=== PATIENT | female | born 1980 | race Caucasian/White ===

== ENCOUNTER → 2016-03-10 | Outpatient (CLI) | payer BC ==
[~2016-03-10] MED LIST: ASPI81TA28 PO; CMD5 PO; ESCI1TAB10 PO; FOLI1TAB7 PO; GLC/500 PO; LEVO50TA6 PO; LVNIS40 SQ; PRENTAB26 PO; WARF5TAB7 PO
== END | disposition home or self-care (01) ==
LOC: C.LABMFLN 09:07
PROVIDERS: ATTEND Family Medicine
DX: R35.0 Frequency of micturition (principal)

== ENCOUNTER → 2016-03-20 | Outpatient (CLI) | payer BC ==
[2016-03-20 16:08] LABS: THYROID STIMULATING HORMONE 1.24 uIu/ml (0.300-4.500)
== END | disposition home or self-care (01) ==
LOC: C.LAB1850 14:41
PROVIDERS: ATTEND Obstetrics & Gynecology
DX: O99.282 Endocrine, nutritional and metabolic diseases complicating pregnancy, second trimester (principal); Z3A.00 Weeks of gestation of pregnancy not specified

== ENCOUNTER → 2016-04-03 | Outpatient (CLI) | payer BC | END | disposition home or self-care (01) | LOC: C.LABSPEC 16:48 | PROVIDERS: ATTEND Obstetrics & Gynecology | DX: O24.410 Gestational diabetes mellitus in pregnancy, diet controlled (principal) ==

== ENCOUNTER 2016-04-21 13:03 | Inpatient (IN) | payer BC ==
[~2016-04-21] VITALS: Ht 162.6 cm; Wt 70.8 kg
[~2016-04-21 13:03] MED LIST changes: -LVNIS40 SQ
[2016-04-21] MEDS ORDERED: LACTATED RINGER'S 1000ML 1,000 ML IV PRN (13:25)
[2016-04-21] MEDS ORDERED: LACTATED RINGER'S 1000ML 1,000 ML IV SCH (13:25)
[2016-04-21 14:09] LABS: HEMATOCRIT 35.6 % (37-47); MEAN CORPUSCULAR HEMOGLOBIN 30.2 pg (25-34); MEAN CORPUSCULAR HGB CONC 35.1 g/dl (32-36); MEAN PLATELET VOLUME 11.7 fL (7.4-10.4); PLATELET COUNT 126 K/uL (130-400); RED BLOOD COUNT 4.14 M/uL (4.2-5.4); WHITE BLOOD COUNT 9.82 K/uL (4.8-10.8)
[2016-04-21 14:17] LABS: PROTHROMBIN TIME (PATIENT) 10.3 SECONDS (9.0-12.0)
[2016-04-21] MEDS ORDERED: BUPIVACAINE 0.25% 30 ML VIAL ONE (14:35)
[2016-04-21] MEDS ORDERED: EpHEDrine SULFATE INJ 50 MG/ML AMP ONE (14:36)
[2016-04-21] MEDS ORDERED: FENTANYL CITRATE INJ 50 MCG/1 ML 2 ML VIAL ONE (14:37)
[2016-04-21] MEDS ORDERED: FENTANYL 2MCG/ML ROPIV 1.25MG/ML 100ML BAG EPI ONE (14:38)
[2016-04-21 15:30] VITALS: Ht 162.6 cm; Wt 70.8 kg
[2016-04-21] MEDS ORDERED: NALOXONE HCL INJ 1 MG in SODIUM CHLORIDE 0.9% 1000ML 1,000 ML IV PRN (16:19)
[2016-04-21] MEDS ORDERED: LACTATED RINGER'S 1000ML 500 ML IV PRN ×2 (16:19→21:37)
[2016-04-21] MEDS ORDERED: EpHEDrine SULFATE INJ 50 MG/ML AMP IV PRN (16:30)
[2016-04-21] MEDS ORDERED: FENTANYL 2MCG/ML ROPIV 1.25MG/ML 100ML BAG EPI PRN (16:30)
[2016-04-21] MEDS ORDERED: ONDANSETRON INJ 2 MG/ML 2 ML VIAL IV PRN (16:30)
[2016-04-21] MEDS ORDERED: DiphenhydrAMINE HCL 50 MG/ML VIAL IV PRN (16:30)
[2016-04-21] MEDS ORDERED: NALOXONE HCL INJ 0.4 MG/1 ML VIAL/CARP IV PRN (16:30)
[2016-04-21] MEDS ORDERED: NALBUPHINE HCL INJ 10 MG/ML AMP IV PRN (16:30)
[2016-04-21] MEDS ORDERED: OXYTOCIN 30 UNITS/500ML NSS IV PRN (21:45)
[2016-04-22] MEDS ORDERED: ACETAMINOPHEN 325 MG TAB PO PRN (01:15)
[2016-04-22] MEDS ORDERED: OXYCODONE/ACETAMINOPHEN 5-325 TAB PO PRN (01:15)
[2016-04-22] MEDS ORDERED: SUPERCREAM 0.870 % 15GM JAR EXT PRN (01:15)
[2016-04-22] MEDS ORDERED: HYDROCORTISONE ACETATE 25 MG SUPP PR PRN (01:15)
[2016-04-22] MEDS ORDERED: IBUPROFEN 600 MG TAB PO PRN (01:15)
[2016-04-22] MEDS ORDERED: OXYTOCIN 30 UNITS/500ML NSS IV PRN (01:15)
[2016-04-22] MEDS ORDERED: LANOLIN OINT EXT PRN ×2 (01:15)
[2016-04-22] MEDS ORDERED: BENZOCAINE 20% AER SPR 82.5 GM CAN EXT PRN (01:15)
[2016-04-22] MEDS: ACETAMINOPHEN/CODEINE 300/30MG TAB PO PRN ×4 (03:25→19:44)
[2016-04-22 03:45] VITALS: BP 122/78; PULSE 116; TEMP 36.5
--- NOTE | 2016-04-22 06:13 | DELIVERY SUMMARY ---
DATE OF OPERATION: 04/22/2016 Carla delivered vaginally on the advisor advocate angel co founder of 04/22/2016. She had a prior and wished a . She presented in labor initially at 3 cm and then progressed to 4. Membranes had been already ruptured and then she progressed to 5 to 6. Eventually, I suggested Pitocin, as the patient's contractions pattern spaced and she agreed. She then progressed rapidly to fully dilated, pushed for approximately 40 minutes and delivered a baby in occiput anterior position. Mouth and then nares were suctioned. There was no nuchal cord. Baby was delivered with gentle traction, a live, vigorous female infant. No excessive force was used. After delayed cord clamping, cord blood was obtained. Placenta was removed. Uterus was examined and scar was found to be intact. A second-degree tear repaired with 3-0 Vicryl. Sponge and instrument counts correct. Estimated blood loss 150 mL and rectal exam negative for sutures or defects. I attest to the content of the Intraoperative Record and any orders documented therein. Any exceptio ns are noted below.
[2016-04-22 07:30] VITALS: BP 118/81; PULSE 98; TEMP 36.7; O2SAT 97
[2016-04-22] MEDS: DOCUSATE SODIUM 100 MG CAP PO SCH ×2 (07:54→19:43)
[2016-04-22] MEDS: PRENATAL VITAMIN TAB PO SCH (07:54)
[2016-04-22] MEDS: LEVOTHYROXINE 50 MCG TAB PO SCH (08:15)
--- NOTE | 2016-04-22 08:32 | Progress Note ---
Subjective Apr 22, 2016. Subjective conversation w/ patient, physical exam, chart review Ambulation: ambulating normally Voiding: no voiding problems Diet Tolerance: Regular Diet Lochia: Moderate Feeding Type: Breast Feeding Objective Vital Signs Date Time Temp Pulse Resp B/P Pulse Ox O2 Delivery O2 Flow Rate FiO2 04/22/16 03:45 36.5 116 20 122/78 04/22/16 03:45 Room Air Physical Exam General Appearance: WELL-APPEARING Abdomen: non tender Fundus: Firm Extremities: no calf tenderness Laboratory Results Last 24 Hours Test 04/21/16 13:26 04/21/16 13:55 Bedside Glucose 85 mg/dl White Blood Count 9.82 K/uL Red Blood Count 4.14 M/uL Hemoglobin 12.5 g/dL Hematocrit 35.6 % Mean Corpuscular Volume 86.0 fL Mean Corpuscular Hemoglobin 30.2 pg Mean Corpuscular Hemoglobin Concent 35.1 g/dl RDW Standard Deviation 43.5 fL RDW Coefficient of Variation 13.9 % Platelet Count 126 K/uL Mean Platelet Volume 11.7 fL Prothrombin Time 10.3 SECONDS Prothromb Time International Ratio 1.0 Activated Partial Thromboplast Time 26.5 SECONDS Partial Thromboplastin Ratio 1.0 Assessment and Plan Problem List Medical Problems: (1) Headache Status: Acute Post- Day#: 1 Continue Routine Care: Start Lovenox 40mg daily tomorrow.
[2016-04-22 12:05] VITALS: BP 120/73; PULSE 105; TEMP 36.5; O2SAT 97
[2016-04-22 15:35] VITALS: BP 132/87; PULSE 109; TEMP 36.6
[2016-04-22 19:40] VITALS: BP 115/73; PULSE 111; TEMP 36.6
[2016-04-22 23:25] VITALS: BP 115/78; PULSE 101; TEMP 36.7
[2016-04-23] MEDS: ACETAMINOPHEN/CODEINE 300/30MG TAB PO PRN (00:16)
[2016-04-23 06:42] LABS: HEMATOCRIT 31.2 % (37-47)
[2016-04-23 07:14] LABS: CREATININE 0.55 mg/dl (0.60-1.20)
--- NOTE | 2016-04-23 07:41 | Progress Note ---
Subjective Apr 23, 2016. Subjective conversation w/ patient, physical exam Ambulation: ambulating normally Voiding: no voiding problems Passing Gas: Yes Diet Tolerance: Regular Diet Lochia: Small Feeding Type: Breast Feeding Review of Systems Constitutional: No chills, No fever Respiratory: No cough, No shortness of breath Cardiac: No chest pain, No palpitations Objective Vital Signs Date Time Temp Pulse Resp B/P Pulse Ox O2 Delivery O2 Flow Rate FiO2 04/22/16 23:25 Room Air 04/22/16 23:25 36.7 101 18 115/78 Room Air 04/22/16 19:40 36.6 111 18 115/73 Room Air 04/22/16 15:35 Room Air 04/22/16 15:35 36.6 109 18 132/87 Room Air 04/22/16 12:05 36.5 105 18 120/73 97 Room Air Physical Exam General Appearance: WELL-APPEARING, NO APPARENT DISTRESS Respiratory/Chest: lungs clear, no respiratory distress Cardiovascular: regular rate, rhythm, no murmur Fundus: Firm, Non-Tender, Relation to Umbilicus (2 cm below) Extremities: non-tender, no calf tenderness Laboratory Results Last 24 Hours Test 04/23/16 06:09 Hemoglobin 10.9 g/dL Hematocrit 31.2 % Creatinine 0.55 mg/dl Est Creatinine Clear Calc Drug Dose 135.1 ml/min Estimated GFR () 138.9 Estimated GFR (Non- 119.8 Assessment and Plan Problem List Medical Problems: (1) Headache Status: Acute Post- Day#: 1 Continue Routine Care: Resident Physician Supervision Note: I interviewed and examined the patient. Discussed with Dr. Sarmiento and agree with findings and plan as documented in the note. Any exceptions or clarifications are listed here: 6wk lovenox due to history of CVA, Rx provided, pt aware and knows how to use correctly. Documented By: April Robles s/p Day 1 - vitals reviewed and wnl - Blood: B-, GBS-, Rubella immune - Patient doing well clinically - Encourage breast feeding, encourage ambulation and monitor lochia - Patient counselled on discharge instructions - Patient will go home with lovenox SQ for 6 weeks - PATIENT TO BE DISCHARGED TODAY
[2016-04-23] MEDS ORDERED: LVNIS40 SQ (07:44)
--- NOTE | 2016-04-23 07:45 | Discharge Instructions ---
Discharge Instructions Date of Service Apr 23, 2016. Admission Reason for Admission: R/O Rupture Of Membranes Discharge Discharge Diagnosis / Problem: Spontaneous Vaginal Delivery Discharge Goals Goal(s): Routine recovery after delivery Medications Continue Dispensed Medications: supercream, dermaplast, tucks, lansinoh Activity Recommendations Activity Limitations: per Instructions/Follow-up section . Instructions / Follow-Up Instructions / Follow-Up ACTIVITY RECOMMENDATIONS: * Gradual return to full activity over the next 2-3 weeks. * No lifting - nothing heavier than baby over the next 2-3 weeks. * Do not engage in vigorous exercise, sexual activity or sports until cleared by your physician. * Do not drive or operate any motorized equipment until cleared by your physician. * You may shower/bathe daily. MEDICATIONS: For discomfort or pain, you may use Acetaminophen (Tylenol), Ibuprofen (Advil), or Naproxen (Aleve) following the package directions. For constipation you may use Colace following the package directions. BREAST CARE: If you are not breast feeding: * Wear a supportive bra 24 hours a day for one to two weeks. * Avoid stimulating your breasts and nipples as much as possible during the first few weeks after delivery. * When taking a shower, have the warm water hit your back, not breasts. * When your breasts feel full, apply ice packs. Usually three to four times a day helps ease the discomfort. * Take a mild pain medication (Tylenol / Motrin) when you are uncomfortable. If breast feeding: * Use breast milk to lubricate nipples. Lansinoh cream may be used for sore nipples. You do not need to remove cream prior to breast feeding. If using a different brand of cream, check the label for directions regarding removal of cream prior to nursing. * Wear a supportive bra. * If having problems with breasts or breast feeding, call a lead consultant or your health care provider. EPISIOTOMY CARE: After delivery, if you have an episiotomy (stitches), the following steps will ease discomfort and aid healing. * For the first 24 hours after delivery, place ice packs next to your episiotomy to help reduce swelling. * After the first 24 hour-period, sitz baths, either portable or in the tub, are suggested. A shower with a shower arm sprayed over the episiotomy may be comforting. * [place]elia care should be done after each voiding and bowel movement. Squirt warm water from a plastic bottle over the perineum (region of the body between the anus and urinary opening) and pat dry. * Use Dermoplast to ease discomfort. Shake container. [place] directly over the episiotomy. Place a Tucks on a clean sanitary pad next to your episiotomy. SPECIAL CARE INSTRUCTIONS: When you are discharged from the hospital, it is important for you to follow the instructions listed below: * During the first week at home, you should be able to care for yourself and your baby. In addition, the usual light household activities are encouraged. * Limit your activities to the way you feel. Do not try to clean the house or move furniture. Be sensible. * If you actively engage in sports and have done so up until the time of your delivery, you may resume these activities as soon as you feel able. This may take up to one month or even longer. Use good judgment. * Continue to take your vitamins for at least six weeks after the of your baby. * Your diet need not be limited unless you were on a special diet before your delivery. Breast-feeding mothers need around 2500 calories per day and at least 64-80 ounces of fluid per day (8 to 10 glasses). * You should eat foods from the four major food groups. Crash diets or fad diets are to be avoided. Eating lean meats, fresh fruits and vegetables, low-fat dairy products, high fiber foods and a regular exercise program, will help you get back to your pre- weight without putting your health at risk. * Constipation is sometimes a problem after delivery. Take a mild laxative as needed. If breast feeding, Milk of Magnesia is acceptable to use. You may use a suppository or Fleets enema if no episiotomy. * A daily shower or tub bath is suggested. Be sure to thoroughly and gently dry the perineum. * A bloody vaginal discharge will usually continue until around four weeks post . A small amount of bleeding may continue for as long as six weeks. Vaginal discharge changes from the bright red bleeding after delivery to pink then brownish and finally yellowish-pink before becoming white and disappearing. * Bleeding may increase with activity. Your first period may come in 4-8 weeks. If you are breast feeding, your period may be delayed even longer. * [place] (sex) can begin whenever both you and your partner feel comfortable and do not have any form of genital infection. It is recommended that you wait at least six weeks for internal and external healing to occur. If you have questions, please talk to your health care practitioner. A condom should be used to prevent infection and . * Foreplay, gentle intercourse and lubrication is very important the first several times to prevent pain. A water-based lubricant such as K-Y jelly or Astroglide may be used. * If you have RH negative blood and your baby is RH positive, you will receive RHOGAM by injection prior to discharge. The nurse will give you a card to keep with you that has the date and place that you received RHOGAM after delivery. * During your care, you had a Rubella screen done to check for the presence of rubella antibodies in your blood. If your test was negative, you will receive a Rubella vaccine prior to discharge. This vaccine may cause a fever, soreness at the injection site and flu-like symptoms. If these symptoms persist, notify your health care practitioner. is not advised for one month after a Rubella vaccine. * Verbalizes understanding of car seat law as reviewed with patient nursing. * Car Seat hand-out given and reviewed with patient by nursing. * Shaken baby information reviewed with patient by nursing. Call you doctor if: * Heavy bleeding (saturating several pads an hour) or passing clots the size of your fist. * A fever >101 degrees F (38.3 degrees C) on two occasions four hours apart and /or chills. * Unusual pain in the pelvic or vaginal areas. * "Baby Blues" lasting longer than two weeks. If you have any questions or concerns, call your health care practitioner at . FOLLOW UP VISIT: * Please call the office at to schedule a 6 week examination. It is important you keep this appointment. It is important for you to make arrangements for either yearly or twice yearly check-ups thereafter. Current Hospital Diet Patient's current hospital diet: Regular OB Diet Discharge Diet Recommended Diet: Regular Diet Pending Studies Studies pending at discharge: no Medical Emergencies . Who to Call and When: Medical Emergencies: If at any time you feel your situation is an emergency, please call 911 immediately. . Non-Emergent Contact Non-Emergency issues call your: Primary Care Provider, Leaf Sucker Operator . . "Provider Documentation" section prepared by Alhaji Sarmiento. VTE Core Measure Inpt VTE Proph given/why not?: Treatment not indicated
[2016-04-23] MEDS: LEVOTHYROXINE 50 MCG TAB PO SCH (07:55)
[2016-04-23 08:00] VITALS: BP 104/67; PULSE 77; PULSE 99; TEMP 36.7
[2016-04-23] MEDS ORDERED: ENOXAPARIN 40 MG/0.4 ML SYR SQ SCH (08:00)
[2016-04-23] MEDS: DOCUSATE SODIUM 100 MG CAP PO SCH (08:36)
[2016-04-23] MEDS: PRENATAL VITAMIN TAB PO SCH (08:36)
[2016-04-23 13:00] VITALS: BP_DIAS 67; PULSE 99; TEMP 36.7
[2016-04-23] MEDS ORDERED: BISACODYL 5 MG TABEC PO SCH (20:00)
[2016-04-24] MEDS ORDERED: BISACODYL 10 MG SUPP PR PRN (07:00)
== END 2016-04-23 13:35 | disposition home or self-care (01) | DRG 775 ==
LOC: C.LD 13:03 → C.OPB 13:03 → C.LD 13:28 → C.OBG 04-22 04:07 → EDSTATUS 04-25 07:30
PROVIDERS: ADMIT Obstetrics & Gynecology; ATTEND Obstetrics & Gynecology
PROC: 0KQM0ZZ Repair Perineum Muscle, Open Approach (ICD-10-PCS; principal; 2016-04-22)
PROC: 10E0XZZ Delivery of Products of Conception, External Approach (ICD-10-PCS; principal; 2016-04-22)
DX: O24.420 Gestational diabetes mellitus in childbirth, diet controlled (principal); O99.354 Diseases of the nervous system complicating childbirth; O34.219 Maternal care for unspecified type scar from previous cesarean delivery; O70.1 Second degree perineal laceration during delivery; G43.909 Migraine, unspecified, not intractable, without status migrainosus; O99.284 Endocrine, nutritional and metabolic diseases complicating childbirth; E07.9 Disorder of thyroid, unspecified; O75.89 Other specified complications of labor and delivery; Q24.9 Congenital malformation of heart, unspecified; Z86.718 Personal history of other venous thrombosis and embolism; Z86.73 Personal history of transient ischemic attack (TIA), and cerebral infarction without residual deficits; Z79.01 Long term (current) use of anticoagulants; Z79.899 Other long term (current) drug therapy; Z37.0 Single live birth; Z3A.39 39 weeks gestation of pregnancy

== ENCOUNTER → 2017-05-01 | Outpatient (CLI) | payer BC ==
[~2017-05-01] MED LIST changes: -ASPI81TA28 PO; -CMD5 PO; -ESCI1TAB10 PO; -FOLI1TAB7 PO; -GLC/500 PO; +LVNIS40 SQ; -WARF5TAB7 PO
[2017-05-01 18:47] LABS: BASO % 0.1 %; BASO ABS # 0.01 K/uL (0-0.2); EOS % 1.2 %; EOS ABS # 0.09 K/uL (0-0.5); HEMATOCRIT 42.5 % (37-47); HEMOGLOBIN 14.8 g/dL (12.0-16.0); IG# 0.01 K/uL (0.00-0.02); LYMPH % 34.6 %; LYMPH ABS # 2.64 K/uL (1.2-3.4); MEAN CELL VOLUME 85.5 fL (80-100); MEAN CORPUSCULAR HEMOGLOBIN 29.8 pg (25-34); MEAN CORPUSCULAR HGB CONC 34.8 g/dl (32-36); MEAN PLATELET VOLUME 11.8 fL (7.4-10.4); MONO % 4.5 %; MONO ABS # 0.34 K/uL (0.11-0.59); NEUT % 59.5 %; NEUT ABS # 4.55 K/uL (1.4-6.5); PLATELET COUNT 235 K/uL (130-400); RED CELL DISTRIBUTION WIDTH CV 13.1 % (11.5-14.5); RED CELL DISTRIBUTION WIDTH SD 40.9 fL (36.4-46.3); WHITE BLOOD COUNT 7.64 K/uL (4.8-10.8)
[2017-05-01 19:11] LABS: ALBUMIN 4.3 gm/dl (3.4-5.0); BLOOD UREA NITROGEN 10 mg/dl (7-18); CALCIUM 9.1 mg/dl (8.5-10.1); CARBON DIOXIDE 29 mmol/L (21-32); CREATININE 0.71 mg/dl (0.60-1.20); GLUCOSE 94 mg/dl (70-99); POTASSIUM 3.7 mmol/L (3.5-5.1); SODIUM 138 mmol/L (136-145)
[2017-05-01 19:22] LABS: PHOSPHORUS 3.4 mg/dl (2.5-4.9)
--- NOTE | 2017-05-15 06:21 | CODING QUERY MEDICAL NECESSITY ---
CQSUPPORTING DIAGNOSIS NEEDED A supporting diagnosis is required for the test/procedure performed on this patient in order for us to be reimbursed by the patient's insurance. Please provide a supporting diagnosis for the following test/procedure listed below next to the test name along with your signature. *If there is no additional diagnosis for this patient that would support the following test/procedure please document that below next to the test/procedure. Test(s)/Procedure(s) that require a supporting diagnosis: DOS 05/01/17 VITAMIN D TEST VITAMIN B12 TEST Provider Signature: Date: Thank you Mica Holley Health Information Management Once completed, please kindly fax back to [phone] For questions please call [phone]
== END | disposition home or self-care (01) ==
LOC: C.LABMFLN 16:11
PROVIDERS: ATTEND Family Medicine
DX: E03.9 Hypothyroidism, unspecified (principal); F41.1 Generalized anxiety disorder; R53.83 Other fatigue

== ENCOUNTER → 2017-05-21 | Outpatient (CLI) | payer BC ==
--- NOTE | 2017-05-21 10:41 | DIAGNOSTIC IMAGING REPORT ---
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 TECHNIQUE: Multidetector CT of the lumbar spine was performed without the use of intravenous contrast. IV contrast: None. A dose lowering technique was used consistent with the principles of ALARA (as low as reasonably achievable). COMPARISON: None. CT DOSE (mGy.cm): The estimated cumulative dose is 531.79 mGy.cm. FINDINGS: Supervisor Rubber Covering topogram: Unremarkable. 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 Protruding fat noted into the overlying subcutaneous tissue from the epidural region. No evidence of herniation of the spinal canal to suggest lipomyelomeningocele. Normal lumbar lordosis. No scoliosis. Vertebral bodies maintain normal height and alignment. Intervertebral disc heights preserved. No osseous spinal canal or neural foraminal narrowing. No acute fracture or subluxation. A violation of soft tissues is limited on CT, however, no evidence of effacement of neural foraminal fat to suggest soft tissue narrowing. The spinal canal is grossly normal. Paraspinal soft tissues within normal limits allowing for noncontrast technique. IMPRESSION: 1. 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 2. Otherwise normal lumbar spine. Electronically signed by: Edgar Good M.D. 05/21/2017 10:40 AM Dictated Date/Time: 05/21/2017 10:27 AM
== END | disposition home or self-care (01) ==
LOC: C.CTS 10:12
PROVIDERS: ATTEND Family Medicine
DX: D17.79 Benign lipomatous neoplasm of other sites (principal); R20.0 Anesthesia of skin